=== PATIENT | male | born 1980 | race Two or more races ===

== ENCOUNTER 2022-09-27 06:56 | Emergency (ER) | payer OTHER ==
[~2022-09-27] VITALS: Ht 170.2 cm; Wt 79.4 kg
== END 2022-09-27 09:37 | disposition home or self-care (01) ==
LOC: ER 06:56 → EDBD 07:05 → ER 09:37
DX: R10.13 Epigastric pain (principal); R19.7 Diarrhea, unspecified; Z20.822 Contact with and (suspected) exposure to COVID-19